=== PATIENT | male | born 1935 | race Two or more races ===

== ENCOUNTER 2018-06-07 08:57 | Outpatient (CLI) | payer OTHER | END 2018-06-07 09:07 | disposition home or self-care (01) | LOC: TOM 08:57 | DX: K56.50 Intestinal adhesions [bands], unspecified as to partial versus complete obstruction (principal); Q41.9 Congenital absence, atresia and stenosis of small intestine, part unspecified; D64.89 Other specified anemias; R19.5 Other fecal abnormalities ==